=== PATIENT | male | born 1995 | race Two or more races ===

== ENCOUNTER 2023-10-21 17:37 | Emergency (ER) | payer MEDICAID ==
[~2023-10-21] VITALS: Ht 172.7 cm; Wt 95.3 kg
[2023-10-21 17:59] VITALS: BP 135/83; TEMP 98.1
[2023-10-21 19:35] VITALS: O2SAT 99
== END 2023-10-21 20:26 | disposition home or self-care (01) ==
LOC: ER 17:46
DX: Z23 Encounter for immunization (principal)